=== PATIENT | female | born 1985 | race Caucasian/White ===

== ENCOUNTER 2016-08-07 17:38 | Emergency (ER) | payer MEDICAID ==
[2016-08-07 17:50] VITALS: BP 130/77
[2016-08-07] MEDS ORDERED: HYDROmorphone 1 mg/mL 1mL Syr IVP STA (17:50)
[2016-08-07] MEDS ORDERED: Sodium Chloride 0.9% 1,000 ML IV ONE (17:50)
--- NOTE | 2016-08-07 17:54 | ED Physician Chart ---
Chief Complaint/HPI - Patient Information Date Seen:: 08/07/16 Time Seen:: 17:45 Chief Complaint:: generalized BLAKE 3 days History of Present Illness:: Pt. has generalized BLAKE 3 days. Not sudden in onset. BLAKE has come and gone. Pt. had a period lasting only 2 days this week. She is . No hx of other medical problems or surg.. No neuro signs. Speaks [place] only but is alert and oriented. No dysuria. No cough. No rash. No focal neuo signs. There is no hx of trauma. Allergies:: Allergies Allergy/AdvReac Type Severity Reaction Status Date / Time No Known Allergies Allergy Verified 08/07/16 17:46 Vitals:: Vital Signs - 8 hr 08/07/16 17:46 Temp 102.9 F HR 144 RR 15 BP 130/77 O2 Sat % 97 Review of Systems - Review of Systems General/Constitutional: No fever (Pt. did not c/o fever, but temp here is 100.9) , No chills, No weight loss Skin: No rash Head: Headache Eyes: No loss of vision ENT: No earache, No sore throat Neck: No neck pain Cardio Vascular: Chest pain (pleuritic) Pulmonary: No SOB, Cough GI: No vomiting, No diarrhea G/U: No dysuria Psychiatric: No prior psych history Neurological: No syncope, No focal symptoms Past Medical History - Past Medical History Past Medical History: No significant medical hx Family History: None (no known congenital illnesses) Social History: Non Smoker, No Alcohol Surgical History: None Psychiatricy History: None Medication Reviewed:: ASA, tylenol Family Medical History - Family Member Mother Ethnicity: Hx Family Cancer: No Hx Family Coronary Artery Disease: No Hx Family Congestive Heart Failure: No Hx Family Diabetes: No Hx Family Dementia: No Hx Family AIDS: No Hx Family COPD: No Hx Family Psychiatric Problems: No Hx Family Tuberculosis: No Physical Exam - Physical Examination General/Constitutional: Awake, Well-developed, well-nourished, Alert, No distress, GCS 15, Non-toxic appearing, Ambulatory Head: Atraumatic Eyes: Lids, conjuctiva normal, PERRL, EOMI Skin: No rash ENMT: External ears, nose nl, TM canals nl, Nasal exam nl, Lips, teeth, gums nl , Oropharynx nl, Tonsils nl Neck: Nontender, Full ROM w/o pain Respiratory: Nl effort/Exclusion, Clear to Auscultation Cardio Vascular: RRR, No murmur, gallop, rubs GI: No tenderness/rebounding/guarding : No CVA tenderness Extremities: No tenderness or effusion Neuro/Psych: Alert/oriented, No focal deficits Labs/Radiology/EKG Results - Lab Results Results: EKG: sinus tach 133 with nl axis and no actue ST changes. Nl. transition. TSH normal at 0.85 CPK, MB and trop nl. or low. UA shows WBC 2 - 5, RBC 50 - 100 PT, PTT normal. Preg. neg. X-ray, CT ordered. WBC 8.3, H/H = 11.7/35.2 CMP shows borderline low Na (132) and K (3.4). CT head per rad.: "NAD" Radiol. could not do 2 view, but port. shows obvious RUL infiltrate. Pt. getting fluids. Pulse 90. Pt. feels well O2 Sat 98%. ED Septic Shock - . Is Septic Shock (SBP<90, OR Lactate>4 mmol\\L) present?: No - <6hrs of presentation: Vital Signs: Vital Signs - 8 hr 08/07/16 17:46 Temp 102.9 F HR 144 RR 15 BP 130/77 O2 Sat % 97 Reassessment (Disposition) - Reassessment Reassessment Condition:: Improved - Aftercare/Follow up Instructions Aftercare/Follow-Up Instructions:: Counseled pt & family regarding lab results/ diagnosis & need follow up Medication Prescribed:: Rx: Z Enrique: take as directed. (250, 2 po, then 1 po qday). Disp. #1 enrique. No refill. - Patient Disposition Discharge/Transfer:: Home Condition at Disposition:: Stable
[2016-08-07 18:07] LABS: % BASOPHILS 0.2 % (0.0-2.0); % EOSINOPHILS 1.2 % (0.0-5.0); % LYMPHOCYTES 17.1 % (20.0-50.0); % MONOCYTES 7.1 % (2.0-10.0); % NEUTROPHILS 74.4 % (40.0-80.0); HEMATOCRIT 35.2 % (35.0-45.0); HEMOGLOBIN 11.7 gm/dL (11.7-15.5); MEAN CELL VOLUME 84.1 fl (81-100); MEAN CORPUSCULAR HGB CONC 33.3 pg (28.0-36.0); MEAN PLATELET VOLUME 9.2 fl; NEUTROPHILE ABSOLUTE 6.2 Th/cmm (1.8-8.0); PLATELET COUNT 260 Th/cmm (150-400); RED BLOOD COUNT 4.19 Mil/cmm (3.80-5.10); RED CELL DISTRIBUTION WIDTH 12.5 % (11.5-20.0); WHITE BLOOD COUNT 8.3 Th/cmm (4.8-10.8)
[2016-08-07] MEDS ORDERED: HYDROmorphone 1 mg/mL 1mL Syr ONE (18:15)
[2016-08-07 18:29] LABS: ALB/GLOB RATIO 0.9 (1.0-1.8); ALKALINE PHOSPHATASE 101 U/L (34-104); ANION GAP 7.9 (7.0-16.0); BILIRUBIN,TOTAL 0.3 mg/dL (0.3-1.0); BUN - UREA NITROGEN 8 mg/dL (7-25); BUN/CREATININE RATIO 11.4; CALCIUM SERUM 8.9 mg/dL (8.6-10.3); CARBON DIOXIDE 23.5 mEq/L (21.0-31.0); CHLORIDE 104 mEq/L (98-107); CREATININE - SERUM 0.7 mg/dL (0.6-1.2); GLUCOSE 104 mg/dL (70-105); POTASSIUM SERUM 3.4 mEq/L (3.5-5.1); SGOT 23 U/L (13-39); SGPT/ALT 21 U/L (7-52); SODIUM SERUM 132 mEq/L (136-145)
[2016-08-07 18:43] LABS: INR 1.07 (0.5-1.4); PROTHROMBIN TIME (TEST) 11.1 SECONDS (9.5-11.5)
[2016-08-07 18:47] LABS: URINE BILIRUBIN NEGATIVE (NEGATIVE); URINE BLOOD LARGE (NEGATIVE); URINE COLOR YELLOW; URINE GLUCOSE (UA) NEGATIVE (NEGATIVE); URINE KETONE NEGATIVE (NEGATIVE); URINE PH 5.5
[2016-08-07 18:48] LABS: URINE BACTERIA 1+ /hpf (NONE SEEN); URINE EPITHELIAL CELLS FEW /lpf (FEW); URINE PROTEIN 30 mg/dL (NEGATIVE); URINE RBC 50-100 /hpf (0-5)
[2016-08-07 18:51] LABS: CREATINE KINASE MB 0.4 ng/mL (0.6-6.3)
[2016-08-07] MEDS ORDERED: cefTRIAXone 1 GM in Sodium Chloride 0.9% 50 ML IV ONE (20:39)
[2016-08-08 08:09] LABS: T3 FREE 2.3 pg/mL (2.0-4.4); T4 FREE 1.05 ng/dL (0.82-1.77)
--- NOTE | 2016-08-08 10:17 | Diagnostic Imaging Report ---
CT scan of the brain without contrast History: Headache Total DLP equals 505 CTDI equals 31.0 Axial sections were obtained from the base of the skull to the vertex. There is a normal ventricular system size. No focal parenchymal lesions are seen. No evidence of any mass effect or shift of midline structures. No extra-axial masses or abnormal fluid collections. Impression: Negative examination
--- NOTE | 2016-08-08 10:18 | Diagnostic Imaging Report ---
Portable chest x-ray HISTORY: Cough Infiltrate is seen in the right upper lobe. The findings are consistent with pneumonia. The heart size is normal. No hilar or mediastinal abnormalities. IMPRESSION: 1. Right upper lobe infiltrate. Findings consistent with pneumonia. Clinical correlation is needed.
== END 2016-08-07 20:56 | disposition home or self-care (01) ==
LOC: ER 17:38
DX: R51 Headache (principal)
CPT/HCPCS: 99285; 96365; 96361; 96375; 93005; 71010; 70450; 84484; 36415; 84443; 85025; 85610; 85730; 87086; 81001; 82550; 82553; 81025; 80053; 84439; 84479; 87040 ×2; J2405; J0696; J1170; J7030